=== PATIENT | female | born 2000 | race Caucasian/White ===

== ENCOUNTER 2023-03-19 10:53 | Emergency (ER) | payer OTHER ==
[~2023-03-19] VITALS: Ht 160 cm; Wt 71.4 kg
[2023-03-19] MEDS ORDERED: ACETAMINOPHEN 500 MG TAB PO ONE (11:45)
[2023-03-19 12:13] LABS: RSV AMPLIFICATION NEGATIVE (NEGATIVE)
[2023-03-19 12:36] VITALS: TEMP 98.4
[2023-03-19 12:39] LABS: BASO % 0.4 % (0.0-1.0); HEMATOCRIT 45.2 % (36.0-47.0); HEMOGLOBIN 15.5 g/dl (12.0-15.5); LYMPH # 1.9 10^3/uL (1.5-5.0); LYMPH % 36.4 % (24.0-44.0); MEAN CORPUSCULAR HEMOGLOBIN 29.8 pg (27.0-33.0); MEAN CORPUSCULAR HGB CONC 34.3 g/dl (32.0-36.5); MEAN CORPUSCULAR VOLUME 86.8 fl (80.0-96.0); MONO # 0.6 10^3/uL (0.0-0.8); MONO % 10.6 % (2.0-8.0); NEUTROPHILS # 2.8 10^3/uL (1.5-8.5); NEUTROPHILS % 52.4 % (36.0-66.0); PLATELET COUNT, AUTOMATED 286 10^3/uL (150-450); RED BLOOD COUNT 5.21 10^6/uL (4.00-5.40); WHITE BLOOD COUNT 5.3 10^3/uL (4.0-10.0)
[2023-03-19 13:10] LABS: BILIRUBIN,DIRECT 0.2 MG/DL (<0.4); BILIRUBIN,TOTAL 0.4 MG/DL (0.3-1.2); TOTAL PROTEIN 7.6 G/DL (5.7-8.2)
[2023-03-19 14:24] VITALS: BP 105/59; O2SAT 98
== END 2023-03-19 14:35 | disposition home or self-care (01) ==
LOC: M ED 10:53
DX: U07.1 COVID-19 (principal); J45.909 Unspecified asthma, uncomplicated; Z88.8 Allergy status to other drugs, medicaments and biological substances